=== PATIENT | male | born 1965 | race Caucasian/White ===

== ENCOUNTER 2016-11-05 17:18 | Day surgery (SDC) | payer OTHER ==
[~2016-11-05] VITALS: Ht 175.3 cm; Wt 85.7 kg
[2016-11-05] MEDS ORDERED: IBUP200T45 PO (17:50)
[2016-11-05] MEDS ORDERED: ceFAZolin 1GM INJ (J0690) As Ordered ONE ×2 (18:56→19:32)
[2016-11-05] MEDS ORDERED: ONDANSETRON 4MG/2ML VIAL (J2405) IV PRN (21:15)
[2016-11-05] MEDS ORDERED: fentaNYL 100 MCG/2 ML INJECTION (J3010) IV PRN (21:15)
[2016-11-05] MEDS ORDERED: LR 1,000 ML IV SCH (21:15)
[2016-11-05 22:00] VITALS: BP 137/90
[2016-11-05] MEDS ORDERED: NORCO, ANEXSIA 5/325MG TABLET (HYDROcodone/ACETAMINOPHEN) PO PRN (22:15)
[2016-11-05] MEDS ORDERED: MORPHINE 4 MG/ML 1ML SYRINGE IV PRN (22:15)
[2016-11-05 22:30] VITALS: BP 126/65
[2016-11-05] MEDS: LR 1,000 ML IV SCH (22:34)
[2016-11-05] MEDS: NORCO, ANEXSIA 5/325MG TABLET (HYDROcodone/ACETAMINOPHEN) PO PRN (22:34)
[2016-11-05 23:30] VITALS: BP 136/65
[2016-11-06 00:30] VITALS: BP 136/60
[2016-11-06 01:30] VITALS: BP 144/60
[2016-11-06] MEDS: NORCO, ANEXSIA 5/325MG TABLET (HYDROcodone/ACETAMINOPHEN) PO PRN ×3 (03:50→13:17)
[2016-11-06 06:00] VITALS: BP 112/79
[2016-11-06] MEDS ORDERED: VICO5TAB16 PO (07:20)
[2016-11-06] MEDS ORDERED: ASPI325T PO (07:20)
--- NOTE | 2016-11-06 07:20 | REP ---
Clinical: Open reduction and fixation. Technique: Intraoperative fluoroscopic imaging. Findings: Multiple intraoperative fluoroscopic images demonstrate the patient to be status post open reduction and fixation for bimalleolar fractures. Satisfactory positioning to the hardware and reduction of fractures is appreciated. Total fluoroscopic time 37 seconds. Impression: Status post open reduction and fixation for bimalleolar left ankle fractures. Signed by Rancho Lovett MD 11/06/2016 07:11 A
[2016-11-06] MEDS ORDERED: KEFL500C7 PO (07:33)
[2016-11-06 10:00] VITALS: BP 159/107
--- NOTE | 2016-11-06 10:01 | RO ---
DATE OF PROCEDURE: 11/05/2016 PREPROCEDURE DIAGNOSIS: Open bimalleolar left ankle fracture. POSTPROCEDURE DIAGNOSIS: Open bimalleolar left ankle fracture. PROCEDURE: 1. Irrigation and debridement of ankle joint and open fracture of the left ankle. 2. Open reduction internal fixation of bimalleolar left ankle fracture. SURGEON: Dr. Krystin Gama STUD [employer]: ANESTHESIA: Spinal. COMPLICATIONS: None. ESTIMATED BLOOD LOSS: About 100 mL. Noted prior to inflating the tourniquet. SPECIMENS: None. DESCRIPTION OF PROCEDURE: Antibiotics were given intravenously preoperatively and as they were in the emergency room, his tetanus was already given in the emergency room. He was counseled on smoking cessation preoperatively and postoperatively as well. He was taken to the operating room and as discussed, a spinal anesthetic was induced and then we removed his splint. There was a significant amount of bleeding noted from the medial wound. The ankle was grossly unstable, thus prior to prep and drape, I actually inflated the tourniquet because prolonged pressure did not allow the bleeding to stop. The tourniquet allowed that to stop and then we carefully scrubbed, prepped first his foot and then sterilely we grabbed the foot and scrubbed prepped the rest of the lower extremity with the scrub brushes and then the Betadine paint. Then after an appropriate time out, we began the surgery. The ankle was abducted and the significant amount of the distal tibia, approximately 8 to 10 cm, was exposed with a clean large transverse fracture through the medial malleolus into the ankle joint. Throughout the case I used a total of about 4 to 5 liters of irrigant solution, some was just sterile saline and some with antibiotic. It was relatively clean appearing. I just basically cleaned out the hematoma. The saphenous vein was actually stripped and avulsed off the distal tissues and I tied it off proximally and cut off the rest of it. The posterior tibial tendon was exposed and the sheath was actually torn open and I did later repair that back with #3-0 PDS suture. It was a fairly significant zone of soft tissue injury that I could retract the soft tissue more laterally and look directly into the fibular fracture site. I palpated the proximal portion of the fibular fracture and it was actually quite stable against the tibia that syndesmosis was actually fairly stable. The fracture was through the fibula at the level of the joint line, thus a syndesmotic screw would likely not be necessary. Once I was satisfied with the cleaning of the ankle joint and the medial fracture site, I then reduced the medial malleolar fragment back to the tibia anatomically and held it with a point of reduction forceps. Then passed two threaded guide pins from the 4.5 cannulated screw set and made sure they were appropriate position with fluoroscopic guidance. I then drilled the near cortices and then passed two 46 mm 4.5 cannulated screws with excellent compression across the fracture site. A very stable construct was noted. Fluoroscopic imaging and the mortise and the lateral planes confirmed good placement. I then addressed the lateral side, and we made a longitudinal incision over the distal fibula. The zone of injury was opened and there was just a shell of very thin cortex and periosteum at the fracture site. But distally, there was a fairly robust piece of fibula for which we could get reasonable fixation. Thus I elected to use a locking plate system. First attempted to use the GetGoing, but we did not have the appropriate screwdriver and the plate did not fit quite flush. Thus, I opened up the Popdeem system and then placed the distal fibular locking plate across the fracture site and help it with a plate-holding clamp. Then fluoroscopic imaging helped us to precisely adjust the plate where we wanted it. I first filled one of the distal holes, first with a nonlocking screw to secure the plate to the distal fibula and then I used another nonlocking screw proximal to the fracture site and secured the plate to the fibula. Fluoroscopic imaging at this point showed that we had excellent reapposition of the mortise in the mortise plane and the fibular fracture was well aligned out to length. Thus I filled the proximal holes of that plate with the nonlocking screws and then a total of three locking screws in the very distal holes of the fibular plate were place. I drilled using the fluoroscopic assistance to make sure I had the proper measurement and then filled with locking screws. Excellent stable construct was noted. At this point, the tourniquet was released. Actually it was released prior to applying the plate because we had to wait for the implants to be opened. So I did remove the tourniquet at about 42 minutes. While the tourniquet was down, then I repaired the large transverse wound medially. which measured about 12 cm and I used a vertical mattress Allgower suture with the notch placed distally because the skin proximally was very thin. Some of the soft tissues are protruding between the sutures were debrided. Then I closed the deep subdermal tissues laterally with interrupted #2-0 PDS sutures and the skin was closed with memo covered by Adaptic dry sterile bulky dressing. I then applied Adaptic over the wounds and then a very well-padded plaster cast was applied. Then he was transferred to the recovery room in stable condition. There were no intraoperative complications. Final fluoroscopic images were done prior to wound closure and saved on Synapse. ADDENDUM: After conclusion of our fixation of the medial and the lateral malleoli, a pointed reduction forceps was placed on the fibula, and then under live fluoroscopy, I pulled laterally to test the syndesmosis, and there was absolutely no play. The syndesmosis was very stable. Thus, the need for syndesmotic fixation was not felt necessary. Addendum 11/06/2016 1:16 p.m. aml
[2016-11-06] MEDS: LR 1,000 ML IV SCH (10:44)
--- NOTE | 2016-11-06 21:23 | HPE ---
DATE OF ADMISSION: 11/05/2016 REASON FOR ADMISSION: Open left ankle fracture. 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 He felt a significant pop and crepitance and pain. His boot remained on. He was transferred to the [facility], evaluated by the emergency room (ER) staff. Boot was removed. Bone was noted to be protruding from the medial side of his ankle and he was closed, reduced by the emergency room staff, and then Betadine applied to the wound and started on intravenous (IV) Kefzol and tetanus was given, and then a splint was applied. He was a bit hypotensive at the time, and an IV bolus of fluid was given and they resuscitated him fine. He remained neurovascularly intact otherwise. Radiographs were done, demonstrating a bi-malleolar left ankle fracture. They called [facility]. Nursing senior manufacturing supervisor contacted myself and I called [facility] and talked to the ER provider and accepted him in transfer by ambulance to [facility] where I met him as soon as he came into the hospital emergency room door. He complains only of isolated left ankle pain. No other complaints of pain, soreness otherwise in the rest of his body. There was no loss of consciousness. Did not strike his head. Only complains of isolated left ankle pain without associated numbness or tingling into his toes at all. PAST MEDICAL HISTORY: 1. He is a smoker. 2. I have seen him for left knee meniscus surgery, and he has had some surgery on his right trigger finger. 3. No other medical issues. ALLERGIES: No known drug allergies. MEDICATIONS: He takes ibuprofen on a daily basis. SOCIAL HISTORY: He is . He lives up in [place]. REVIEW OF SYSTEMS: Health survey is otherwise unremarkable. EXAMINATION: When I examine him, he is alert and he is oriented. VITAL SIGNS: Blood pressure 151/70, pulse 88, respirations 18, temperature 98.8, oxygen saturation on room air is 97%. He weighs 79.38 kg, 5 feet 9 inches tall. HEENT: Normocephalic, atraumatic. Extraocular muscles grossly normal. Oropharynx is benign. He could elevate his arms up overhead without pain, crepitance, or deformity noted over his clavicles, shoulders, humeri, elbows, forearms, wrists, hands, fingers. LUNGS: Clear to auscultation. HEART: Regular. I do not detect a murmur. ABDOMEN: Nontender. EXTREMITIES: Left lower extremity is in a posterior splint. His exposed toes he could move and dorsiflex and plantar flex in all of his toes without excessive pain. He had normal sensation to light touch in each of his toes. Good capillary refill. I could palpate dorsalis pedis pulse. IMAGING: Radiographs showed a bimalleolar ankle fracture. It is reasonably well reduced presently. LABORATORY DATA: His white count was 12.8, hematocrit 43.1, platelets 324. Sodium 139, potassium 3.5, chloride 102, bicarbonate 28, BUN 14, creatinine 0.9. Glucose was 140. Liver function tests were normal. Troponin less than 0.017. Urinalysis was negative. IMPRESSION: Open left ankle fracture. He was given IV Kefzol and tetanus at around 3:30 in the afternoon at [facility]. He was given a liter saline bolus. I recommend taking him to the operating room for open irrigation and debridement of his open wound and the ankle joint, cleaning it out as thoroughly as possible, and then fix the bimalleolar ankle fracture with plates and screws as necessary intraoperatively. The risks were discussed with the patient as far as any complications and risk of having surgical intervention, such as infection, damage to nerves, blood vessels, anesthetic complications of phlebitis, embolism, heart attack, amongst others. He understands the risks, but he understands the need for surgical intervention. He signed the consent and we plan to proceed promptly as soon as the operating room is available.
[2016-11-07] MEDS ORDERED: MIDAZOLAM INJ 2 MG/2 ML VIAL (J2250) As Ordered ONE (07:52)
[2016-11-07] MEDS ORDERED: fentaNYL 100 MCG/2 ML INJECTION (J3010) As Ordered ONE (07:52)
== END 2016-11-06 13:40 | disposition home or self-care (01) ==
LOC: M ED 17:18 → M SDC 17:33 → M MS5PR 21:40 → M SDC 11-06 13:40
PROVIDERS: ATTEND Orthopaedic Surgery
DX: S82.842A Displaced bimalleolar fracture of left lower leg, initial encounter for closed fracture (principal); W11.XXXA Fall on and from ladder, initial encounter; Y93.43 Activity, gymnastics; Y99.0 Civilian activity done for income or pay; F17.210 Nicotine dependence, cigarettes, uncomplicated; Y92.61 Building [any] under construction as the place of occurrence of the external cause
CPT/HCPCS: 27814; 73610; 96374; 96376; 97116; 99285; C1776; J0690

== ENCOUNTER → 2017-02-07 | Outpatient (REF) | payer OTHER ==
[~2017-02-07] MED LIST: ASPI325T PO; IBUP200T45 PO; KEFL500C7 PO; VICO5TAB16 PO
[2017-02-07 16:39] LABS: BASO # 0.1 K/mm3 (0.0-0.2); BASO % 0.6 % (0.0-1.0); EOS # 0.1 K/mm3 (0.0-0.50); EOS % 0.6 % (0.0-3.0); LARGE UNSTAINED CELL # 0.1 K/mm3 (0.0-0.4); LARGE UNSTAINED CELL % 1.2 % (0.0-4.0); LYMPH # 1.7 K/mm3 (1.5-4.5); MEAN CORPUSCULAR HEMOGLOBIN 30.8 pg (27.0-33.0); MEAN CORPUSCULAR HGB CONC 33.2 g/dl (32.0-36.5); MEAN CORPUSCULAR VOLUME 92.7 fl (80.0-96.0); MONO # 0.6 K/mm3 (0.0-0.8); MONO % 5.2 % (0.0-5.0); NEUTROPHILS # 8.2 K/mm3 (1.8-7.7); NEUTROPHILS % 76.4 % (36.0-66.0); PLATELET COUNT, AUTOMATED 368 k/mm3 (150-450); RED CELL DISTRIBUTION WIDTH 12.8 % (11.5-14.5); WHITE BLOOD COUNT 10.7 K/mm3 (4.0-10.0)
[2017-02-07 17:07] LABS: ERYTHROCYTE SEDIMENTATION RATE 2 mm/hr (0-15)
== END ==
LOC: M LABDRAW1 15:33
PROVIDERS: ATTEND Orthopaedic Surgery
DX: S82.842E Displaced bimalleolar fracture of left lower leg, subsequent encounter for open fracture type I or II with routine healing (principal)